=== PATIENT | female | born 1960 | race Caucasian/White ===

== ENCOUNTER → 2017-09-20 | Outpatient (CLI) | payer BC | END | disposition home or self-care (01) | LOC: KCIC MRI 14:51 | DX: M25.512 Pain in left shoulder (principal); R60.0 Localized edema | CPT/HCPCS: 73221 ==

== ENCOUNTER → 2017-10-05 | Outpatient (CLI) | payer BC | END | disposition home or self-care (01) | LOC: KCIC MRI 14:08 | DX: M25.551 Pain in right hip (principal) | CPT/HCPCS: 73721 ==

== ENCOUNTER → 2018-03-19 | Outpatient (CLI) | payer BC ==
--- NOTE | 2018-03-19 17:18 | KCIC ---
EXAM: Bilateral digital screening mammogram with tomosynthesis. HISTORY: 57-year-old female presents for screening mammography. TECHNIQUE: Full-field digital craniocaudal and mediolateral oblique 2D and 3D tomosynthesis images of both breasts are obtained for evaluation. Computer aided detection with Bio[employer] software version 9.3 was applied. COMPARISON: 03/03/2015 BREAST PARENCHYMAL DENSITY: Level C - Heterogeneously dense. FINDINGS: There is nodularity within the posterior 3:00 position of the left breast which is more conspicuous compared to the prior study, a component of which may be due to differences in imaging technique. There are few benign calcifications, including a cluster of coarse calcifications within the left breast. There is a biopsy clip within the right breast. There is no architectural distortion. IMPRESSION: BI-RADS Category 0: Additional imaging needed. RECOMMENDATION: Further evaluation with a left breast sonogram targeted to the posterior 3:00 position to assess nodularity is recommended. If your mammogram demonstrates that you have dense breast tissue, which could hide abnormalities, and if you have other risk factors for breast cancer that have been identified, you might benefit from supplemental screening tests that may be suggested by your ordering physician. Dense breast tissue, in and of itself, is a relatively common condition. This information is not provided to cause undue concern, but rather to raise your awareness and to promote discussion with your physician regarding the presence of other risk factors, in addition to dense breast tissue. A report of your mammography results will be sent to you and your physician. You should contact your physician if you have any questions or concerns regarding this report. Mammography is a sensitive method for finding small breast cancers, but it does not detect them all and is not a substitute for careful clinical examination. A negative mammogram does not negate a clinically suspicious finding and should not result in delay in biopsying a clinically suspicious abnormality. PQRS compliance statement - Patient information was entered into a reminder system with a target due date for the next mammogram. "Our facility is accredited by the [employer] Mammography [employer]." Electronically signed by: Jocelyn Miranda MD (03/19/2018 5:15 PM) [id number]
== END | disposition home or self-care (01) ==
LOC: KCIC MAMMO 15:24
PROVIDERS: ATTEND Nurse Practitioner Family
DX: Z12.31 Encounter for screening mammogram for malignant neoplasm of breast (principal)
CPT/HCPCS: 77063; 77067

== ENCOUNTER → 2018-04-03 | Outpatient (CLI) | payer BC ==
--- NOTE | 2018-04-03 17:38 | KCIC ---
Left breast ultrasound: Reason for examination: Nodular densities on screening mammogram. Ultrasound examination was performed in the area of mammographic concern and at the left axilla. At the 3:00 position 6 cm from the nipple and at the 3:00 position 9 cm from the nipple, there are benign-appearing cystic lesions present measuring up to 5.7 mm in greatest dimension. No solid or suspicious nodules are seen. No abnormal appearing lymph nodes are seen in the axilla. IMPRESSION: Small lesions consistent with cysts in the 3:00 position 6 cm and 9 cm from the nipple which correspond to the mammographic findings. No suspicious lesion seen. Recommend routine mammographic follow-up. BI-RADS Category 2: Benign. "Our facility is accredited by the [employer] Mammography Program." This patient's information has been entered into a reminder system for the patient to be notified with the results of her examination and a target date for the next mammogram. Electronically signed by: Mireya Hicks MD (04/03/2018 5:35 PM) [id number]
== END | disposition home or self-care (01) ==
LOC: KCIC US 09:07
PROVIDERS: ATTEND Nurse Practitioner Family
DX: N60.02 Solitary cyst of left breast (principal)
CPT/HCPCS: 76641